=== PATIENT | male | born 1955 ===

== ENCOUNTER 2025-02-11 08:37 | Outpatient (CLI) | payer MEDICARE, OTHER | END 2025-02-11 08:38 | disposition home or self-care (01) | LOC: CSHSLEEP 08:37 | PROVIDERS: ATTEND Internal Medicine Critical Care Medicine | DX: G47.33 Obstructive sleep apnea (adult) (pediatric) (principal); R53.83 Other fatigue; R06.83 Snoring | CPT/HCPCS: 95800 ==